=== PATIENT | male | born 1970 | race African-American/Black ===

== ENCOUNTER 2023-08-14 19:20 | Emergency (ER) | payer OTHER ==
[2023-08-14 19:56] VITALS: BMI 23.7
[2023-08-14] MEDS ORDERED: ACETAMINOPHEN 325 MG TABLET (FP) PO ONE (20:22)
[2023-08-14] MEDS ORDERED: ACETAMINOPHEN 325 MG TABLET (FP) ONE (20:31)
[2023-08-14 21:49] VITALS: BP 147/98; PULSE 86; RESP 20; TEMP 98.9
== END 2023-08-14 22:15 | disposition home or self-care (01) ==
LOC: JER 19:20
DX: R09.81 Nasal congestion (principal); R19.7 Diarrhea, unspecified; R68.83 Chills (without fever); R51.9 Headache, unspecified; R05.9 Cough, unspecified; R09.3 Abnormal sputum; R42 Dizziness and giddiness; B34.9 Viral infection, unspecified; J10.1 Influenza due to other identified influenza virus with other respiratory manifestations; Z20.822 Contact with and (suspected) exposure to COVID-19
CPT/HCPCS: 0241U-QW; 99283-25